=== PATIENT | male | born 1980 | race Caucasian/White ===

== ENCOUNTER → 2018-01-09 10:18 | Outpatient (CLI) | payer BC, SELFPAY ==
--- NOTE | 2018-01-09 10:25 | XR_ITS ---
XR knee RT 3V COMPARISON: None HISTORY: Right knee pain TECHNIQUE: AP lateral and oblique views FINDINGS: There is minor joint space narrowing medially. The tibial spines appear normal. The patella is intact and I see no effusion. The soft tissues are normal. There is prominence of the tibial tubercle possibly secondary to old [place] slaughters disease. IMPRESSION: Minor degenerative changes of knee as noted
== END ==
PROVIDERS: PCP Family Medicine; Visit Provider Family Medicine
DX: M23.91 Unspecified internal derangement of right knee (principal)
CPT/HCPCS: 73562

== ENCOUNTER → 2018-01-27 08:13 | Outpatient (CLI) | payer BC, SELFPAY ==
--- NOTE | 2018-01-27 08:19 | MR_ITS ---
MR knee RT wo con HISTORY: Right knee pain, lateral knee pain ITS.REASON: INTERNAL DERANGEMENT OF RIGHT KNEE ORDERING PHYSICIAN: Joaquín Jolly MD PATIENT AGE: 37 years COMPARISON: 01/09/2018 TECHNIQUE: Standard multiplanar multiecho sequences are performed without contrast. FINDINGS: The cruciate ligaments and collateral ligaments have an unremarkable appearance. No evidence of meniscal tear. No fracture or bone bruise. There is a moderate to large sized knee joint effusion mainly in the suprapatellar region with internal synechiae patellar cartilage is well preserved. No fracture. The joint spaces are well-preserved. IMPRESSION: 1. No evidence of internal derangement 2. Moderate to large sized knee joint effusion
== END ==
PROVIDERS: Family Provider Family Medicine; PCP Family Medicine; Visit Provider Family Medicine
DX: M23.91 Unspecified internal derangement of right knee (principal)
CPT/HCPCS: 73721

== ENCOUNTER 2021-12-28 09:32 | Emergency (ER) | payer BC, SELFPAY ==
[2021-12-28 09:46] VITALS: BP 172/113; PULSE 70; RESP 18; TEMP 36.9; O2SAT 98; BMI 43.5
--- NOTE | 2021-12-28 09:57 | HMH.EDUTC ---
[facility] [place] Dis[place]: Fair Time of Disposition: 10:04 <Marissa Kay - Last Filed: 12/28/21 09:57> Condition on Discharge: Good <Alex Fernando - Last Filed: 12/29/21 15:34> Clinical Impression: Headache Qualifiers: Headache type: unspecified Headache chronicity pattern: episodic headache Intractability: not intractable Qualified Code(s): R51.9 - Headache, unspecified Hypertension Qualifiers: Hypertension type: unspecified Qualified Code(s): I10 - Essential (primary) hypertension Instructions: DI for Headache Additional Instructions: Please return to the emergency department immediately if you feel worse in any way. Keep all follow-up appointments as scheduled. Your work-up in the emergency department today did not reveal any life-threatening or dangerous causes for your headaches. Also, your blood pressure became normal without us giving you any blood pressure medication. After your headache got better your blood pressure also got better after headache medication. Referrals: Kiko Nation MD [Primary Care Provider] - Forms: Work/School Release Medical Decision Making - Shai Inquiry Pt receiving controlled substance: No Shai was queried for this patient: No <Marissa Kay - Last Filed: 12/28/21 09:57> - Medical Records Medical records reviewed: Yes: I reviewed the patient's medical records. - Shai Inquiry Pt receiving controlled substance: No Shai was queried for this patient: No - Lab Data Lab results reviewed: Yes: I reviewed the patient's lab results. Result diagrams: 12/28/21 10:13 - CT Data CT Scan: Head Time Received: 15:[address] Reviewed: Yes: I have reviewed the patient's CT results, I have viewed the radiologist's interpretation Preliminary Findings: Normal/NAD <AbdullahiAlex - Last Filed: 12/29/21 15:34> Vital Signs: 12/28/21 09:46 12/28/21 10:10 12/28/21 11:01 Temperature 98.4 F 98.9 F Temperature Source Oral Oral Pulse Rate 61 Pulse Rate [Left] 70 67 Respiratory Rate 18 18 16 Blood Pressure 120/78 Blood Pressure [Right Arm] 172/113 H 162/120 H Blood Pressure Mean 92 Blood Pressure Mean [Right Arm] 132 134 Blood Pressure Source [Right Arm] Blood Pressure Position [Right Arm] Sitting 02 Sat by Pulse Oximetry 98 98 98 Oxygen Delivery Method Room Air 12/28/21 11:25 12/28/21 11:30 12/28/21 11:50 Temperature 98.9 F Temperature Source Pulse Rate 69 69 Pulse Rate [Left] 59 L Respiratory Rate 16 19 16 Blood Pressure 134/82 134/82 Blood Pressure [Right Arm] 120/78 Blood Pressure Mean 99 Blood Pressure Mean [Right Arm] 92 Blood Pressure Source [Right Arm] Automatic Cuff Blood Pressure Position [Right Arm] Sitting 02 Sat by Pulse Oximetry 98 98 Oxygen Delivery Method Room Air Room Air - Lab Data Lab Results 12/28/21 10:13: Sodium 140, Potassium 3.7, Chloride 104, Carbon Dioxide 25, Anion Gap 14.7, BUN 14, Creatinine 0.80, Estimated Creat Clear 110, Estimated GFR 107, Est GFR ( Amer) 129, Glucose 105 H, Calcium 9.0, Total Bilirubin 0.7, AST 53, ALT 59, Alkaline Phosphatase 50, Total Protein 8.0, Albumin 4.4, Globulin 3.6 H, Albumin/Globulin Ratio 1.2 Orders (Tests/Meds): ED MEDICATIONS Discontinued Medications Generic Name Dose Route Start Last Admin Trade Name Freq PRN Reason Stop Dose Admin Ketorolac Tromethamine 30 mg 12/28/21 10:13 12/28/21 10:22 Ketorolac 30mg/Ml Vial IV 12/28/21 10:14 30 mg ONCE ONE Administration Metoclopramide HCl 10 mg 12/28/21 10:13 12/28/21 10:22 Metoclopramide Hcl 10mg/2ml Vial IVP 12/28/21 10:14 10 mg ONCE ONE Administration Medical Decision Narrative: Due to patient complaining of headache, nausea and light headed and feeling off with elevated BP discussed with patient and recommended transfer to the ED for further work up and evaluation and patient agreed Called ED spoke with Baylee PEREZ and patient was moved to room 1 for
[2021-12-28 10:10] VITALS: BP 162/120; PULSE 67; RESP 18; TEMP 37.2; O2SAT 98; BMI 43.5
--- NOTE | 2021-12-28 10:13 | CT_ITS ---
FINAL REPORT CLINICAL HISTORY: Headache with hypertension, dizziness FINDINGS: Axial images of the head were obtained without contrast. Coronal reformatted images were also obtained.This study was performed with techniques to keep radiation doses as low as reasonably achievable (ALARA). Individualized dose reduction techniques using automated exposure control or adjustment of mA and/or kV according to the patient''s size were employed. There is no evidence of intracranial hemorrhage or mass. The ventricular size is within normal limits. There is no evidence of shift of the midline structures. No abnormal extra axial fluid collection is identified. No skull abnormality is seen on the bone window images. IMPRESSION: No acute intracranial abnormality. Reviewed, Interpreted and Dictated by Cory Berry III, MD Transcribed by Bertha Maddox Authenticated by Cory Berry III, MD on 12/28/2021 11:11:[address] [facility]
[2021-12-28 10:33] LABS: Alanine Aminotransferase 59 U/L (12-78); Albumin Level 4.4 g/dl (3.5-5.0); Albumin/Globulin Ratio 1.2 (1.1-1.8); Alkaline Phosphatase 50 U/L (38-126); Anion Gap 14.7 mEq/L (5-15); Aspartate Amino Transferase 53 U/L (17-59); Bilirubin,Total 0.7 mg/dl (0.2-1.3); Blood Urea Nitrogen 14 mg/dl (9-20); Carbon Dioxide 25 mmol/L (22.0-30.0); Chloride 104 mmol/L (98-107); Creatinine Clearance Estimated 110 mL/min (50-200); Estimated Glomerular Filt Rate 107 ml/min (>60); GFR (African American) 129 ML/MIN (>60); Globulin 3.6 g/dL (1.3-3.2); Glucose 105 mg/dl (74-100); Potassium 3.7 mmoL/L (3.5-5.1); Sodium 140 mmol/L (136-145)
[2021-12-28 11:01] VITALS: BP 120/78; PULSE 61; RESP 16; O2SAT 98
--- NOTE | 2021-12-28 11:22 | PC.NURSE ---
pt sitting up in bed, reports headache is better- notified ER
[2021-12-28 11:25] VITALS: BP 120/78; PULSE 59; RESP 16; O2SAT 98
[2021-12-28 11:30] VITALS: BP 134/82; PULSE 69; RESP 19; O2SAT 98
[2021-12-28 11:50] VITALS: BP 134/82; PULSE 69; RESP 16; TEMP 37.2; O2SAT 98
== END 2021-12-28 11:50 ==
LOC: UTC 09:49 → ER 09:59
PROVIDERS: Emergency Provider Emergency Medicine; PCP Emergency Medicine
DX: R51.9 Headache, unspecified (principal); I10 Essential (primary) hypertension
CPT/HCPCS: 70450; 80053; 96374; 96375; 99284

== ENCOUNTER 2022-08-25 08:52 | Emergency (ER) | payer BC, SELFPAY ==
[2022-08-25 09:17] VITALS: BP 137/95; PULSE 68; RESP 16; TEMP 36.8; O2SAT 97; BMI 41.9
[2022-08-25 09:18] LABS: UTC Strep Screen (Rapid) Negative (Negative)
[2022-08-25 09:19] LABS: UTC Influenza A Antigen Negative (Negative); UTC Influenza B Antigen Negative (Negative)
--- NOTE | 2022-08-25 09:39 | EXP.UTC ---
Discharge Plan Disposition Patient Disposition: Home, Self-Care Condition: Good Prescriptions Prescriptions: New azithromycin [Zithromax] 250 mg tablet 250 mg PO UD DOSE PK Qty: 6 0RF Rx Instructions: Take two (2) tablets today, then one (1) tablet days #2 thru #5 benzonatate [benzonatate] 100 mg capsule 100 mg PO TIDP PRN (Reason: Cough) Qty: 30 0RF methylprednisolone 4 mg Tablets,Dose Pack 4 mg PO DIRECTED Qty: 21 0RF No Action phentermine [Adipex-P] 37.5 mg tablet 37.5 mg PO DAILY Qty: 30 0RF Rx Instructions: must administer 30 minutes before or 1-2 hours after breakfast losartan-hydrochlorothiazide 50-12.5 mg tablet See Rx Instructions .ROUTE .COMPLEX Qty: 90 0RF Dose Instruction: TAKE 1 TABLET BY MOUTH DAILY Rx Instructions: TAKE 1 TABLET BY MOUTH DAILY amlodipine 10 mg tablet See Rx Instructions .ROUTE .COMPLEX Qty: 90 0RF Dose Instruction: TAKE 1 TABLET BY MOUTH DAILY Rx Instructions: TAKE 1 TABLET BY MOUTH DAILY pantoprazole 40 mg tablet,delayed release (DR/EC) See Rx Instructions .ROUTE .COMPLEX Qty: 90 0RF Dose Instruction: TAKE 1 TABLET BY MOUTH DAILY Rx Instructions: TAKE 1 TABLET BY MOUTH DAILY Referrals Follow up/Referrals: Kiko Nation MD [Primary Care Provider] - See instructions Activity Restrictions/Add. Instructions Additional Instructions/Restrictions: Drink plenty of fluids. Take tylenol or ibuprofen for pain or fever. Take the medications as directed. Follow up with your regular doctor. GO TO THE ER FOR ANY WORSENING SYMPTOMS Don't start the oral steroids until tomorrow, since you had the shot here today. Clinical Impressions Clinical Impression: Sinusitis Stand Alone Forms Stand Alone Forms: Work/School Release Discharge ED Provider: Luke Quinones [facility] [place] General Stated complaint: Congestin,Cough,Runny nose Mode of Arrival: Ambulatory Source of Information: Patient Limitations: No Limitations Time Seen by Provider: 08/25/22 09:28 Description of Symptoms (Recalled from Triage Doc. by RN): pt comes in with c/o runny nose, cough, congestion, sore throat. symptoms began friday HEENT Symptoms (Recalled from RN notes): Yes Resp Symptoms (Recalled from RN notes): Yes Skin Symptoms (Recalled from RN notes): No MS Symptoms (Recalled from RN notes): No Functional Status (Recalled from RN notes): n/a History of Present Illness Provider Complaint: He states that for the past 5 days he has had cough, chest congestion, Related Data Previous Rx's Medication Instructions Recorded phentermine 37.5 mg tablet 37.5 mg PO DAILY #30 tabs 03/29/22 (Adipex-P) amlodipine 10 mg tablet See Rx Instructions .Route 06/25/22 .COMPLEX #90 tabs losartan 50 mg-hydrochlorothiazide See Rx Instructions .Route 06/25/22 12.5 mg tablet .COMPLEX #90 tabs pantoprazole 40 mg tablet,delayed See Rx Instructions .Route 06/25/22 release .COMPLEX #90 tabs azithromycin 250 mg tablet 250 mg PO UD DOSE PK #6 tabs 08/25/22 (Zithromax) benzonatate 100 mg capsule 100 mg PO TIDP PRN Cough #30 caps 08/25/22 methylprednisolone 4 mg tablets in 4 mg PO DIRECTED #21 tabs 08/25/22 a dose pack Allergies Allergy/AdvReac Type Severity Reaction Status Date / Time No Known Allergies Allergy Verified 08/25/22 09:19 Worker's Comp Is this a Worker's Comp case?: No [facility] Disclaimer: The information contained in this section may have been updated after the patient was seen, as this information can be updated by other users. Social History Smoking Status: Never smoker alcohol intake: current substance use type: denies use current occupational status: employed Travel in the last 8 weeks: None ROS Obtained: Yes All systems reviewed & no additional complaints except as documented Constitutional Constitutional: Reports chills
[2022-08-25 10:11] VITALS: BP 137/95; PULSE 68; RESP 16; TEMP 36.8
== END 2022-08-25 10:12 | disposition home or self-care (01) ==
PROVIDERS: Emergency Provider Nurse Practitioner Family; PCP Emergency Medicine
DX: J32.9 Chronic sinusitis, unspecified (principal)
CPT/HCPCS: 87804; 87880; 96372; 99212; G0463

== ENCOUNTER 2022-08-28 08:08 | Emergency (ER) | payer BC, SELFPAY ==
[2022-08-28 08:38] VITALS: BP 148/94; PULSE 89; RESP 18; TEMP 37.7; O2SAT 96; BMI 41.4
--- NOTE | 2022-08-28 09:05 | EXP.UTC ---
Discharge Plan Disposition Patient Disposition: Home, Self-Care Condition: Good Prescriptions Prescriptions: New prednisone 10 mg tablet 10 mg PO BID 5 Days Qty: 10 0RF amoxicillin-pot clavulanate 875-125 mg Tablet 1 tab PO Q12H Qty: 20 0RF fluticasone propionate [Flonase Allergy Relief] 50 mcg/actuation spray,suspension 1 spray intranasal DAILY Qty: 16 0RF Rx Instructions: administer into each nostril Discontinued azithromycin [Zithromax] 250 mg tablet 250 mg PO UD DOSE PK Qty: 6 0RF Rx Instructions: Take two (2) tablets today, then one (1) tablet days #2 thru #5 benzonatate [benzonatate] 100 mg capsule 100 mg PO TIDP PRN (Reason: Cough) Qty: 30 0RF methylprednisolone 4 mg Tablets,Dose Pack 4 mg PO DIRECTED Qty: 21 0RF No Action phentermine [Adipex-P] 37.5 mg tablet 37.5 mg PO DAILY Qty: 30 0RF Rx Instructions: must administer 30 minutes before or 1-2 hours after breakfast losartan-hydrochlorothiazide 50-12.5 mg tablet See Rx Instructions .ROUTE .COMPLEX Qty: 90 0RF Dose Instruction: TAKE 1 TABLET BY MOUTH DAILY Rx Instructions: TAKE 1 TABLET BY MOUTH DAILY amlodipine 10 mg tablet See Rx Instructions .ROUTE .COMPLEX Qty: 90 0RF Dose Instruction: TAKE 1 TABLET BY MOUTH DAILY Rx Instructions: TAKE 1 TABLET BY MOUTH DAILY pantoprazole 40 mg tablet,delayed release (DR/EC) See Rx Instructions .ROUTE .COMPLEX Qty: 90 0RF Dose Instruction: TAKE 1 TABLET BY MOUTH DAILY Rx Instructions: TAKE 1 TABLET BY MOUTH DAILY Referrals Follow up/Referrals: Kiko Nation MD [Primary Care Provider] - See instructions Activity Restrictions/Add. Instructions Additional Instructions/Restrictions: *Monitor Temp, Over the counter Motrin or Tylenol as directed/as needed Tylenol every 4 hours and Motrin every 6 hours (as long as your family doctor has told you that you can take it) for fever or pain. and straight to ER if unable to lower temp less than 101.0 after medication given *Warm salt water gargles may help to soothe the throat *Throat Lozenges? *Warm fluids like tea with honey may help to soothe the throat? *Sleep elevated *Humidifier/Vaporizer *Flonase 2 sprays in each nostril daily but be aware that it may take 2-3 days before you notice improvement *Bromfed may cause drowsiness. Know how it effects you (your child) before driving, caring for small child, or sending your child to school. Not other antihistamines/allergy medications while taking bromfed Your throat swab was sent for culture. Those results are typically sent to your primary care. Be sure to follow up in 2-3 days with your family doctor/primary care physician if no improvement so they can review those result and treat if necessary. If you don?t have a primary care doctor, I recommend you get one but in the mean time, you will have to return to a walk in clinic Follow up IMMEDIATELY for new or worsening symptoms or no Noticeable improvement over the next 48-72 hours. 911 for difficulty breathing or swallowing Clinical Impressions Clinical Impression: Otitis media Instructions Patient Instructions: Middle Ear Infection Discharge ED Provider: Marissa Kay [facility] [place] HPI General Stated complaint: Congestion, LT ear pain, sore throat Mode of Arrival: Ambulatory Source of Information: Patient Limitations: No Limitations Time Seen by Provider: 08/28/22 09:05 Description of Symptoms (Recalled from Triage Doc. by RN): LEFT SIDE EAR PAIN HEENT Symptoms (Recalled from RN notes): Yes Resp Symptoms (Recalled from RN notes): No Skin Symptoms (Recalled from RN notes): No MS Symptoms (Recalled from RN notes): No Functional Status (Recalled from RN notes): WNL History of Present Illness Provider Complaint: Patient states that he has been having pain in his left ear, sinus congestion and pressure, and sore scratchy throat State that he
[2022-08-28 09:25] VITALS: BP 148/94; PULSE 89; RESP 18; TEMP 37.7; O2SAT 96
== END 2022-08-28 09:25 | disposition home or self-care (01) ==
PROVIDERS: Emergency Provider Nurse Practitioner; PCP Emergency Medicine
DX: H66.90 Otitis media, unspecified, unspecified ear (principal)
CPT/HCPCS: 99212; G0463

== ENCOUNTER 2022-09-23 12:08 | Emergency (ER) | payer BC, SELFPAY ==
[2022-09-23 14:20] VITALS: BP 131/87; PULSE 89; RESP 19; TEMP 36.7; O2SAT 98; BMI 36.5
[2022-09-23 14:33] VITALS: BP 131/87; PULSE 89; RESP 19; TEMP 36.7; O2SAT 98
--- NOTE | 2022-09-23 14:33 | EXP.UTC ---
Discharge Plan Disposition Patient Disposition: Home, Self-Care Condition: Good Prescriptions Prescriptions: No Action phentermine [Adipex-P] 37.5 mg tablet 37.5 mg PO DAILY Qty: 30 0RF Rx Instructions: must administer 30 minutes before or 1-2 hours after breakfast losartan-hydrochlorothiazide 50-12.5 mg tablet See Rx Instructions .ROUTE .COMPLEX Qty: 90 0RF Dose Instruction: TAKE 1 TABLET BY MOUTH DAILY Rx Instructions: TAKE 1 TABLET BY MOUTH DAILY amlodipine 10 mg tablet See Rx Instructions .ROUTE .COMPLEX Qty: 90 0RF Dose Instruction: TAKE 1 TABLET BY MOUTH DAILY Rx Instructions: TAKE 1 TABLET BY MOUTH DAILY pantoprazole 40 mg tablet,delayed release (DR/EC) See Rx Instructions .ROUTE .COMPLEX Qty: 90 0RF Dose Instruction: TAKE 1 TABLET BY MOUTH DAILY Rx Instructions: TAKE 1 TABLET BY MOUTH DAILY prednisone 10 mg tablet 10 mg PO BID 5 Days Qty: 10 0RF amoxicillin-pot clavulanate 875-125 mg Tablet 1 tab PO Q12H Qty: 20 0RF fluticasone propionate [Flonase Allergy Relief] 50 mcg/actuation spray,suspension 1 spray intranasal DAILY Qty: 16 0RF Rx Instructions: administer into each nostril Referrals Follow up/Referrals: Kiko Nation MD [Primary Care Provider] - See instructions Activity Restrictions/Add. Instructions Additional Instructions/Restrictions: *Monitor Temp, Over the counter Motrin or Tylenol as directed/as needed Tylenol every 4 hours and Motrin every 6 hours (as long as your family doctor has told you that you can take it) for fever or pain. and straight to ER if unable to lower temp less than 101.0 after medication given *Warm salt water gargles may help to soothe the throat *Throat Lozenges? *Warm fluids like tea with honey may help to soothe the throat? *Sleep elevated *Humidifier/Vaporizer Follow up IMMEDIATELY for new or worsening symptoms or no Noticeable improvement over the next 48-72 hours. 911 for difficulty breathing or swallowing You were tested for today for COVID19 your test result should be back in the next 24-48 hours, you may check your results on the [facility] [employer] [facility] Clinical Impressions Clinical Impression: Viral syndrome Stand Alone Forms Stand Alone Forms: Work/School Release Instructions Patient Instructions: COVID-19 Viral Test, DI for COVID-19 (Suspected or Confirmed ) Discharge ED Provider: Marissa Kay [facility] [place] HPI General Stated complaint: chills, fever, cough, congestion, covid + 09/23 Time Seen by Provider: 09/23/22 14:33 History of Present Illness Provider Complaint: Patient states that he has been around mother that was positive for COVID States that now he is having symptoms States that he has been having fever, chills, bodyaches and a little cough States that he took a home COVID test and it was positive so he he had to come in and get tested Related Data Previous Rx's Medication Instructions Recorded phentermine 37.5 mg tablet 37.5 mg PO DAILY #30 tabs 03/29/22 (Adipex-P) amoxicillin 875 mg-potassium 1 tab PO Q12H #20 tabs 08/28/22 clavulanate 125 mg tablet fluticasone propionate 50 1 spray intranasal DAILY #16 grams 08/28/22 mcg/actuation nasal spray,suspension (Flonase Allergy Relief) prednisone 10 mg tablet 10 mg PO BID 5 days #10 tabs 08/28/22 amlodipine 10 mg tablet See Rx Instructions .Route 09/23/22 .COMPLEX #90 tabs losartan 50 mg-hydrochlorothiazide See Rx Instructions .Route 09/23/22 12.5 mg tablet .COMPLEX #90 tabs pantoprazole 40 mg tablet,delayed See Rx Instructions .Route 09/23/22 release .COMPLEX #90 tabs Allergies Allergy/AdvReac Type Severity Reaction Status Date / Time No Known Allergies Allergy Verified 08/25/22 09:19 [facility] Disclaimer: The information contained in this section may have been updated after the patient was seen, as this information can be updated by other users. S
== END 2022-09-23 14:35 | disposition home or self-care (01) ==
PROVIDERS: Emergency Provider Nurse Practitioner; PCP Emergency Medicine
DX: U07.1 COVID-19 (principal); R50.9 Fever, unspecified; R05.9 Cough, unspecified; R09.89 Other specified symptoms and signs involving the circulatory and respiratory systems
CPT/HCPCS: 99212; 99213; C9803; G0463; U0003; U0005

== ENCOUNTER 2022-12-04 16:28 | Emergency (ER) | payer BC, SELFPAY ==
--- NOTE | 2022-12-04 17:33 | EXP.UTC ---
Discharge Plan Disposition Patient Disposition: Home, Self-Care Condition: Good Prescriptions Prescriptions: New benzonatate [benzonatate] 100 mg capsule 100 mg PO TIDP PRN (Reason: Cough) Qty: 30 0RF methylprednisolone 4 mg Tablets,Dose Pack 4 mg PO DIRECTED Qty: 21 0RF amoxicillin-pot clavulanate 875-125 mg Tablet 1 tab PO Q12H Qty: 20 0RF No Action phentermine [Adipex-P] 37.5 mg tablet 37.5 mg PO DAILY Qty: 30 0RF Rx Instructions: must administer 30 minutes before or 1-2 hours after breakfast losartan-hydrochlorothiazide 50-12.5 mg tablet See Rx Instructions .ROUTE .COMPLEX Qty: 90 0RF Dose Instruction: TAKE 1 TABLET BY MOUTH DAILY Rx Instructions: TAKE 1 TABLET BY MOUTH DAILY amlodipine 10 mg tablet See Rx Instructions .ROUTE .COMPLEX Qty: 90 0RF Dose Instruction: TAKE 1 TABLET BY MOUTH DAILY Rx Instructions: TAKE 1 TABLET BY MOUTH DAILY pantoprazole 40 mg tablet,delayed release (DR/EC) See Rx Instructions .ROUTE .COMPLEX Qty: 90 0RF Dose Instruction: TAKE 1 TABLET BY MOUTH DAILY Rx Instructions: TAKE 1 TABLET BY MOUTH DAILY prednisone 10 mg tablet 10 mg PO BID 5 Days Qty: 10 0RF amoxicillin-pot clavulanate 875-125 mg Tablet 1 tab PO Q12H Qty: 20 0RF fluticasone propionate [Flonase Allergy Relief] 50 mcg/actuation spray,suspension 1 spray intranasal DAILY Qty: 16 0RF Rx Instructions: administer into each nostril Referrals Follow up/Referrals: Kiko Nation MD [Primary Care Provider] - See instructions Activity Restrictions/Add. Instructions Additional Instructions/Restrictions: Drink plenty of fluids. Take tylenol or ibuprofen for pain or fever. Take the medications as directed. Follow up with your regular doctor. GO TO THE ER FOR ANY WORSENING SYMPTOMS Clinical Impressions Clinical Impression: Sinusitis, Bronchitis, Acute viral syndrome Stand Alone Forms Stand Alone Forms: Work/School Release Instructions Patient Instructions: DI for Sinusitis, DI for Acute Bronchitis Discharge ED Provider: Luke Quinones [facility] [place] HPI General Stated complaint: sore throat,cough nausa Time Seen by Provider: 12/04/22 17:33 History of Present Illness Provider Complaint: He states that for the past 3 days he has had worsening bilateral ear pain and sinus congestion Related Data Previous Rx's Medication Instructions Recorded phentermine 37.5 mg tablet 37.5 mg PO DAILY #30 tabs 03/29/22 (Adipex-P) amoxicillin 875 mg-potassium 1 tab PO Q12H #20 tabs 08/28/22 clavulanate 125 mg tablet fluticasone propionate 50 1 spray intranasal DAILY #16 grams 08/28/22 mcg/actuation nasal spray,suspension (Flonase Allergy Relief) prednisone 10 mg tablet 10 mg PO BID 5 days #10 tabs 08/28/22 amlodipine 10 mg tablet See Rx Instructions .Route 09/23/22 .COMPLEX #90 tabs losartan 50 mg-hydrochlorothiazide See Rx Instructions .Route 09/23/22 12.5 mg tablet .COMPLEX #90 tabs pantoprazole 40 mg tablet,delayed See Rx Instructions .Route 09/23/22 release .COMPLEX #90 tabs amoxicillin 875 mg-potassium 1 tab PO Q12H #20 tabs 12/04/22 clavulanate 125 mg tablet benzonatate 100 mg capsule 100 mg PO TIDP PRN Cough #30 caps 12/04/22 methylprednisolone 4 mg tablets in 4 mg PO DIRECTED #21 tabs 12/04/22 a dose pack Allergies Allergy/AdvReac Type Severity Reaction Status Date / Time No Known Allergies Allergy Verified 12/04/22 17:51 [facility] Disclaimer: The information contained in this section may have been updated after the patient was seen, as this information can be updated by other users. Social History Smoking Status: Never smoker alcohol intake: current substance use type: denies use current occupational status: employed Travel in the last 8 weeks: None ROS Obtained: Yes All systems reviewed & no additional com
[2022-12-04 17:37] LABS: UTC Strep Screen (Rapid) Negative (Negative)
[2022-12-04 17:40] VITALS: BP 117/87; PULSE 109; RESP 20; TEMP 37.9; O2SAT 93; BMI 41.9
[2022-12-04 18:04] LABS: UTC Influenza A Antigen Negative (Negative); UTC Influenza B Antigen Negative (Negative)
[2022-12-04 18:10] VITALS: BP 117/87; PULSE 109; RESP 20; TEMP 37.9; O2SAT 93
== END 2022-12-04 18:10 | disposition home or self-care (01) ==
PROVIDERS: Emergency Provider Nurse Practitioner Family; PCP Emergency Medicine
DX: J20.9 Acute bronchitis, unspecified (principal); J01.90 Acute sinusitis, unspecified; R07.0 Pain in throat; R50.9 Fever, unspecified
CPT/HCPCS: 87804; 87880; 99212; 99214; G0463

== ENCOUNTER 2023-10-10 18:31 | Outpatient (CLI) | payer BC, SELFPAY ==
[2023-10-10 18:26] LABS: Basophils % 0.7 % (0.1-2.0); Eosinophils # 0.2 K/mm3 (0.0-0.4); Eosinophils % 2.9 % (0.1-12.0); Hematocrit 38.7 % (42.0-52.0); Hemoglobin 14.4 g/dL (14.1-18.0); Lymphocytes # 1.4 K/mm3 (0.7-4.5); Lymphocytes % 22.7 % (10-50); Mean Corpuscular HGB Conc 37.1 g/dL (31.8-35.4); Mean Corpuscular Hemoglobin 28.5 pg (27.0-31.2); Mean Corpuscular Volume 76.8 fl (80-94); Monocytes # 0.5 K/mm3 (0.1-1.0); Monocytes % 8.1 % (1.7-9.3); Neutrophils % 65.6 % (37.0-80.0); Platelet Count 244 K/mm3 (142-424); Red Blood Count 5.04 M/mm3 (4.60-6.20); Red Cell Distribution Width 16.1 % (11.5-17.5); White Blood Count 6.1 K/mm3 (4.8-10.8)
[2023-10-10 19:24] LABS: Hemoglobin A1C 5.8 % (4.0-6.0)
[2023-10-10 19:44] LABS: Chloride 104 mmol/L (98-107); Sodium 140 mmol/L (136-145)
[2023-10-10 19:47] LABS: Alanine Aminotransferase 113 U/L (12-78); Albumin Level 4.7 g/dl (3.5-5.0); Albumin/Globulin Ratio 1.3 (1.1-1.8); Alkaline Phosphatase 71 U/L (38-126); Aspartate Amino Transferase 92 U/L (17-59); Bilirubin,Total 0.8 mg/dl (0.2-1.3); Blood Urea Nitrogen 13 mg/dl (9-20); Carbon Dioxide 26 mmol/L (22.0-30.0); Cholesterol 130 mg/dl (140-200); Estimated Glomerular Filt Rate 73 ml/min (>60); GFR (African American) 88 ML/MIN (>60); Globulin 3.6 g/dL (1.3-3.2); Total Protein,Serum 8.3 g/dl (6.3-8.2); Triglycerides 105 mg/dl (30-150); VLDL Cholesterol 21 mg/dL (0-40)
[2023-10-10 19:48] LABS: Calcium 8.9 mg/dl (8.4-10.2); Chol/HDL Ratio 4.6 (1-3.5); Glucose 97 mg/dl (74-100); HDL Cholesterol 28 mg/dl (40-60)
[2023-10-10 19:59] LABS: Direct LDL Cholesterol 76.29 mg/dL (100-129)
[2023-10-10 20:04] LABS: 25-OH Vitamin D, Total 36.3 ng/mL (30-100)
[2023-10-10 20:19] LABS: Thyroid Stimulating Hormone 1.58 uIU/mL (0.465-4.68)
== END 2023-10-10 23:59 ==
LOC: LAB.DROPOF 18:31
PROVIDERS: PCP Nurse Practitioner Family; Visit Provider Nurse Practitioner Family
DX: I10 Essential (primary) hypertension (principal); E66.01 Morbid (severe) obesity due to excess calories; Z68.41 Body mass index [BMI] 40.0-44.9, adult; Z79.899 Other long term (current) drug therapy; Z12.5 Encounter for screening for malignant neoplasm of prostate
CPT/HCPCS: 80053; 80061; 82306; 83036; 84443; 85025; G0103

== ENCOUNTER 2024-02-27 11:50 | Outpatient (CLI) | payer BC, SELFPAY ==
[2024-02-27 19:16] LABS: Alanine Aminotransferase 98 U/L (12-78); Albumin Level 4.6 g/dl (3.5-5.0); Alkaline Phosphatase 69 U/L (38-126); Aspartate Amino Transferase 76 U/L (17-59); Bilirubin,Indirect 0.7 mg/dL (0.0-0.9); Bilirubin,Total 0.7 mg/dl (0.2-1.3); Bilirubin,Unconjugated 0.7 mg/dL (0.0-1.1)
[2024-02-29 10:37] LABS: HBsAg Screen Negative (Negative); HCV Ab Non Reactive (Non Reactive); Hep A Ab, IGM Negative (Negative); Hep B Core Ab, IgM Negative (Negative)
== END 2024-02-27 23:59 | disposition home or self-care (01) ==
LOC: LAB.DROPOF 03-01 11:50
PROVIDERS: Visit Provider Family Medicine
DX: R79.89 Other specified abnormal findings of blood chemistry (principal)
CPT/HCPCS: 80074; 80076

== ENCOUNTER 2024-03-26 16:00 | Outpatient (CLI) | payer BC, SELFPAY ==
[2024-03-26 18:49] LABS: Alanine Aminotransferase 60 U/L (12-78); Aspartate Amino Transferase 53 U/L (17-59); Bilirubin,Unconjugated 0.5 mg/dL (0.0-1.1)
[2024-03-26 18:50] LABS: Albumin Level 4.2 g/dl (3.5-5.0); Alkaline Phosphatase 61 U/L (38-126); Bilirubin,Indirect 0.5 mg/dL (0.0-0.9); Bilirubin,Total 0.5 mg/dl (0.2-1.3); Total Protein,Serum 7.5 g/dl (6.3-8.2)
[2024-03-26 19:05] LABS: Hemoglobin A1C 6.9 % (4.0-6.0)
== END 2024-03-26 23:59 | disposition home or self-care (01) ==
LOC: LAB.DROPOF 03-27 10:51
PROVIDERS: PCP Family Medicine; Visit Provider Family Medicine
DX: I10 Essential (primary) hypertension (principal)
CPT/HCPCS: 80076; 83036

== ENCOUNTER 2024-04-08 08:00 | Outpatient (CLI) | payer BC, SELFPAY ==
--- NOTE | 2024-04-08 08:00 | CA_ITS ---
FINAL REPORT CLINICAL HISTORY: uncontrolled htn COMPARISON: None FINDINGS: Aorta velocity: 104 cm/sec Right kidney: 12 cm. No evidence of hydronephrosis or mass. Right intrarenal RI: 0.73 Right renal artery velocity: 187 cm/sec. Right RAR (Renal artery-Aortic Ratio): 1.8 Left Kidney: 12.3 cm. No evidence of hydronephrosis or mass. Left intrarenal RI: 0.71 Left renal artery velocity: 163 cm/sec. Left RAR (Renal Artery-Aortic Ratio): 1.56 IMPRESSION: No evidence of significant renal artery stenosis. CT angiogram or postcontrast MR angiogram would be more sensitive for evaluation of possible renal artery stenosis. Reviewed, Interpreted and Dictated by Karyna Carrero MD Transcribed by Bernice Chavarria Authenticated and [facility]
--- NOTE | 2024-04-08 08:03 | CA_ITS ---
APPROVED REPORT EXAM: Comprehensive 2D, Doppler, and color-flow Echocardiogram [employer] Hostess: FABIEN Mendoza, RVS Ht: 5 ft 5 in Wt: 298lbs BSA: 2.34 BP: 132/82 mmHg Indications: DM, HTN Echo Enhancing Agent Indication: no IV access Comments: Limited windows due to extreme body habitus, Subcostal images limited by fatty liver artifact 2D Dimensions LA Volume 81.40 mL LA Volume Index [id number] mL/m2 (M/F) 16-34 M-Mode Dimensions RVDd 3.61 cm (0.9-2.6) LA Diam 4.28 cm (1.9-4.0) LVDd 5.18 cm (3.5-5.7) LVDs 3.61 cm (3.5-5.7) IVSd 1.08 cm (0.6-1.1) PWd 0.92 cm (0.6-1.1) EF (Teich) 57.30% EPSs 0.40 cm FS 30.30% EDV (Teich) 128.40 mL TAPSE 2.31 (<1.7) ESV (Teich) 54.80 mL LV Diastology E Decel Time 233 (160-240 msec) E/A Ratio 1.87 MED A' 7.90 cm/s LAT A' 7.10 cm/s Aortic Valve ADI Index 1.46 cm2/m2 AoV Peak Pascual. 126.0 (50-130 cm/s) AO Peak GR. 6.30 mmHg AO Mean GR. 3.20 (<5 mmHg) AO VTI 25.9 (18-25 cm) ADI (VTI) 3.50 (2.5-4.5 cm2) Mitral Valve MV A Velocity 45.0 (40-130 cm/s) E/A Ratio 1.87 Pulmonary Valve PV Peak Velocity 84.0 (50-150 cm/s) Tricuspid Valve TR P. Velocity 252.00 cm/s RAP Estimate 10.00 mmHg RVSP 35.40 mmHg Left Ventricle The left ventricle is normal size. The left ventricular systolic function is normal. The left ventricular ejection fraction is within the normal range. There is normal left ventricular wall thickness. There is normal LV segmental wall motion. The left ventricular diastolic function is normal. LVEF is 55%. Right Ventricle The right ventricle is mildly dilated. The right ventricular systolic function is normal. Atria Left atrium is mildly dilated. Right atrium is mildly dilated. The interatrial septum is not well-visualized. Aortic Valve The aortic valve opens well. There is no aortic valvular stenosis. Trace aortic regurgitation. Mitral Valve The mitral valve is normal in structure. No evidence of mitral valve stenosis. Trace mitral regurgitation. Tricuspid Valve The tricuspid valve leaflets are thin and pliable. Mild tricuspid regurgitation. RVSP is 25-30 mmHg. Pulmonic Valve The pulmonary valve is normal in structure. Trace pulmonic regurgitation. Great Vessels The aortic root is normal in size. The ascending aorta is not well-visualized. IVC is normal in size and collapses >50% with inspiration. Pericardium There is no pericardial effusion. Other Information Study Quality: Fair Conclusion Normal biventricular systolic function. Mild RV dilation. Mild biatrial dilation. Mild TR. RVSP 25-30 mmHg. Electronically signed by : Mikala Belcher MD 04/11/2024 22:16:52
--- NOTE | 2024-04-08 08:37 | US_ITS ---
FINAL REPORT TECHNIQUE: Ultrasound images of the kidneys and bladder were obtained. CLINICAL HISTORY: HTN, DM, Obesity COMPARISON: None FINDINGS: The right kidney measures 12 cm in length. It is normal in echogenicity. There is no hydronephrosis. The left kidney measures 12.3 cm in length. It is normal in echogenicity. There is no hydronephrosis.. IMPRESSION: No hydronephrosis. Reviewed, Interpreted and Dictated by Karyna Carrero MD Transcribed by Bernice Chavarria Authenticated and [facility]
== END 2024-04-08 23:59 | disposition home or self-care (01) ==
LOC: RT 08:00
PROVIDERS: PCP Family Medicine; Visit Provider Family Medicine
DX: I10 Essential (primary) hypertension (principal); R06.09 Other forms of dyspnea; E66.01 Morbid (severe) obesity due to excess calories; Z68.42 Body mass index [BMI] 45.0-49.9, adult
CPT/HCPCS: 76770; 93306; 93976

== ENCOUNTER → 2024-04-30 07:38 | Outpatient (CLI) | payer BC, SELFPAY | LOC: SL 07:40 | PROVIDERS: PCP Family Medicine; Visit Provider Family Medicine | DX: G47.33 Obstructive sleep apnea (adult) (pediatric) (principal) | CPT/HCPCS: G0399 ==

== ENCOUNTER 2025-01-01 16:00 | Outpatient (CLI) | payer BC, SELFPAY ==
[2025-01-01 20:24] LABS: Coronavirus 19, PCR Not Detected (NotDetected); Human Rhinovirus Not Detected (NotDetected); Influenza A, PCR Not Detected (NotDetected); Influenza B, PCR Not Detected (NotDetected); Respiratory Syncytial Virus Not Detected (NotDetected)
== END 2025-01-01 23:59 | disposition home or self-care (01) ==
LOC: LAB.DROPOF 01-11 09:28
PROVIDERS: PCP Nurse Practitioner; Visit Provider Nurse Practitioner
DX: R50.9 Fever, unspecified (principal)
CPT/HCPCS: 87631

== ENCOUNTER 2025-05-26 10:28 | Outpatient (CLI) | payer BC, SELFPAY ==
[2025-05-26 15:09] LABS: Hematocrit 38.0 % (42.0-52.0); Hemoglobin 12.8 g/dL (14.1-18.0); Immature Granulocytes % 0.3 %; Mean Corpuscular HGB Conc 33.7 g/dL (31.8-35.4); Mean Corpuscular Hemoglobin 27.3 pg (27.0-31.2); Mean Corpuscular Volume 81.0 fl (80-94); Nucleated Red Blood Cells % 0 %; Platelet Count 94 K/mm3 (142-424); Red Blood Count 4.69 M/mm3 (4.60-6.20); Red Cell Distribution Width-SD 40.6 fL; White Blood Count 7.2 K/mm3 (4.8-10.8)
[2025-05-26 15:11] LABS: Albumin Level 4.5 g/dl (3.5-5.0); Chloride 105 mmol/L (98-107); Potassium 3.7 mmoL/L (3.5-5.1); Sodium 140 mmol/L (136-145)
[2025-05-26 15:14] LABS: Alanine Aminotransferase 46 U/L (12-78); Albumin/Globulin Ratio 1.5 (1.1-1.8); Alkaline Phosphatase 59 U/L (38-126); Anion Gap 12.7 mEq/L (5-15); Aspartate Amino Transferase 52 U/L (17-59); Bilirubin,Total 0.8 mg/dl (0.2-1.3); Blood Urea Nitrogen 22 mg/dl (9-20); Calcium 9.4 mg/dl (8.4-10.2); Carbon Dioxide 26 mmol/L (22.0-30.0); Cholesterol 82 mg/dl (140-200); Creatinine,Serum 1.10 mg/dl (0.66-1.25); Estimated Glomerular Filt Rate 72 ml/min (>60); GFR (African American) 88 ML/MIN (>60); Globulin 3.1 g/dL (1.3-3.2); Glucose 120 mg/dl (74-100); HDL Cholesterol 23 mg/dl (40-60); Total Protein,Serum 7.6 g/dl (6.3-8.2); Triglycerides 212 mg/dl (30-150)
[2025-05-26 15:46] LABS: Thyroid Stimulating Hormone 4.16 uIU/mL (0.465-4.68)
[2025-05-27 02:37] LABS: Hemoglobin A1C 5.7 % (4.0-6.0)
--- OUTSIDE RECORDS SUMMARY | 2025-05-27 10:16 | XMS_ITS | Clinical Summary ---
[facility] Address [address] [place] [address] Care Team Providers Care Anesthesiology Physician Name Role Phone Joaquín Jolly MD Primary Care Provider + Allergies No known active allergies Medications losartan-hydroch lorothiazide (HYZAAR) 100-25 MG per tablet Take 1 tablet by mouth Daily. Active amLODIPine (NORVASC) 10 MG tablet Take 10 mg by mouth Daily. Active Social History Tobacco Use Types Packs/Day Years Used Date Smoking Tobacco: Former Abuse Screen Answer Date Recorded Unsafe at Home or Work/School Not on file Feels Threatened by Someone? Not on file 07/2023 Does Anyone Keep You from Co ntacting Others or Doint Things Outside the Home? Not on file 07/02/2023 Physical Sign of Abuse Present Not on file 1 Housing Stability Answer Date Recorded Current Living Arrangements Not on file 06/22 Potentially Unsafe Housing Conditions Not on geoff e 07/02/2023 Family and Community Support Answer Damian e Recorded Help with Day-to-Day Activities Not on file 07/02/2023 Lonely or Isolated Not on file 07/02/2023 Employment Answer Date Recorded Do you want help finding or keeping work or a ania b? Not on file 07/02/2023 Disabilities Answer Date Recorded Concentrating, Remembering, or Making Decisions Difficulty Not on file 07/02/2023 Doing Errands Independently Difficulty Not on fi le 07/02/2023 Education Answer Date Recorded Help with school or training? Not on file Preferred Language Not on file 07/02/2023 Sex and Gender Information Value Date Recorded Sex Assigned at Not on file Legal Sex Male 9:25 AM EST Gender Identity Not on file Sexual Orientation Not on file Last Filed Vital Signs Vital Sign Reading Time Taken Comments Blood Pressure - - Pulse 86 09/02/2016 10:31 AM EST Temperature 37 C (98.6 F) 09/02/2016 10:31 AM EST Respiratory Rate 18 09/02/2016 10:31 AM EST Oxygen Saturation 98% 09/02/2016 10:31 AM EST Inhaled Oxygen Concentration - - Weight - - Height - - Body Mass Index - - Plan of Treatment Health Maintenance Due Date Last Done Comments ANNUAL PHYSICAL 1980 HEPATITIS C SCREENING 1980 TDAP/TD VACCINES (1 - Tdap) 1999 COVID-19 Vaccine (2023-2 5 season) 2024 COLOGUARD 2025 COLON CANCER SCREENING 5 YEA R SIGMOIDOSCOPY 2025 COLONOSCOPY 2025 COLORECTAL CANCER SCREENING 2025 CT COLONOGRAPHY 2025 FECAL OCCULT BLOOD TEST 2025 FIT Testing (1 year) 2025 INFLUENZA VACCINE 06/22/2025 Pneumococcal Vaccine 0-49 Aged Out No longer eligible based on patient's age to complete this topic Insurance [facility] PPO Care Teams Anesthesiology Physician Relationship Specialty Start Date End Date Joaquín Jolly MD PCP - General Family Medicine 09/02/16
== END 2025-05-26 23:59 ==
LOC: LAB.DROPOF 05-27 10:15
PROVIDERS: PCP Family Medicine; Visit Provider Family Medicine
DX: E11.9 Type 2 diabetes mellitus without complications (principal); I10 Essential (primary) hypertension; E66.9 Obesity, unspecified
CPT/HCPCS: 80053; 80061; 83036; 84443; 85025